=== PATIENT | female | born 1970 | race African-American/Black ===

== ENCOUNTER 2023-04-17 15:10 | Emergency (ER) | payer OTHER | END 2023-04-17 17:07 | disposition home or self-care (01) | LOC: ERS 15:10 | DX: T21.11XA Burn of first degree of chest wall, initial encounter (principal); T31.0 Burns involving less than 10% of body surface; I10 Essential (primary) hypertension; X10.0XXA Contact with hot drinks, initial encounter | CPT/HCPCS: 99283 ==

== ENCOUNTER 2024-03-23 12:12 | Emergency (ER) | payer SELFPAY ==
[2024-03-23] MEDS ORDERED: Acetaminophen 500 MG TAB ONE (13:28)
== END 2024-03-23 14:40 | disposition home or self-care (01) ==
LOC: ERS 12:12
DX: S50.811A Abrasion of right forearm, initial encounter (principal); S50.311A Abrasion of right elbow, initial encounter; S80.212A Abrasion, left knee, initial encounter; I10 Essential (primary) hypertension; K21.9 Gastro-esophageal reflux disease without esophagitis; Z79.899 Other long term (current) drug therapy; W01.0XXA Fall on same level from slipping, tripping and stumbling without subsequent striking against object, initial encounter
CPT/HCPCS: 99283

== ENCOUNTER 2024-03-26 18:17 | Emergency (ER) | payer OTHER, SELFPAY ==
[2024-03-26] MEDS ORDERED: Ketorolac Tromethamine 30 MG (1 mL) VIAL ONE (18:43)
[2024-03-26 19:00] LABS: #Basophils 0.05 10x3/uL (0.0-0.2); %Basophils 0.9 % (0.0-1.0); %Eosinophils 1.4 % (0.0-10.0); %Lymphocytes 42.6 % (21.0-51.0); %Monocytes 10.3 % (0.0-10.0); %Neutrophils 44.6 % (42.0-75.0); Hematocrit 36.2 % (36.0-47.0); Hemoglobin 12.2 g/dL (12.0-16.0); Mean Corpuscular HGB CONC 33.7 g/dL (32.0-36.0); Mean Corpuscular Hemoglobin 30.9 pg (27.0-31.0); Mean Corpuscular Volume 91.6 fL (78.0-98.0); Mean Platelet Volume 10.2 fL (7.4-10.4); Platelet Count 274 10x3/uL (130-400); RBC Distribution Width 12.9 % (11.5-14.5); Red Blood Cell (RBC) Count 3.95 mill/uL (4.20-5.40)
[2024-03-26 19:20] LABS: ALT (SGPT) 17 U/L (8-55); AST (SGOT) 46 U/L (5-34); Albumin 3.5 g/dL (3.5-5.0); Alkaline Phosphatase 123 U/L (40-110); Anion Gap 14 mmol/L (10-20); BUN (Urea Nitrogen) 19 mg/dL (9.8-20.1); Bilirubin, Total 0.3 mg/dL (0.2-1.2); Calc. Creatinine Clearance 0 mL/min (70-130); Calcium 8.5 mg/dL (7.8-10.44); Carbon Dioxide 21 mmol/L (22-29); Chloride 107 mmol/L (98-107); Estimated GFR 63; Globulin 5.2 g/dL (2.4-3.5); Glucose 89 mg/dL (70-105); Potassium 5.6 mmol/L (3.5-5.1); Protein, Total 8.7 g/dL (6.0-8.3); Sodium 136 mmol/L (136-145)
[2024-03-26 20:05] LABS: Potassium 4.3 mmol/L (3.5-5.1)
== END 2024-03-26 21:01 | disposition home or self-care (01) ==
LOC: ERS 18:17
DX: S70.11XA Contusion of right thigh, initial encounter (principal); S20.211A Contusion of right front wall of thorax, initial encounter; I10 Essential (primary) hypertension; W01.0XXA Fall on same level from slipping, tripping and stumbling without subsequent striking against object, initial encounter
CPT/HCPCS: 71260; 74177; 80053; 85025; 96374; J1885